=== PATIENT | female | born 1945 | race Caucasian/White ===

== ENCOUNTER 2017-04-18 11:13 | Inpatient (IN) ==
[2017-04-18] MEDS ORDERED: ASPIRIN PO STA (11:49)
[2017-04-18 11:57] LABS: MANUAL DIFF NEEDED? NO
[2017-04-18 12:11] LABS: BASO% 0.7 % (0.0-0.8); EOS# 0.11 X1000 (0.0-0.7); EOS% 2.7 % (0.0-10.0); HEMATOCRIT 40.3 % (37.0-47.0); HEMOGLOBIN 13.4 g/dL (12.0-16.0); LYMPH# 0.95 X1000 (1.2-3.4); LYMPH% 23.1 % (20.5-51.1); MCH 28.9 PG (27-31); MCHC 33.3 g/dL (33-37); MCV 86.9 FL (81-99); MONO# 0.43 X1000 (0.11-0.59); MONO% 10.4 % (1.7-9.3); NEUT% 63.1 % (42.2-75.2); PLT 209 X1000 (130-400); RBC 4.64 XMIL (4.2-5.4)
[2017-04-18 12:13] LABS: INR 1.11; PROTIME 11.7 Seconds (9.2-11.7); PTT 32.7 Seconds (22.0-36.0)
[2017-04-18 12:21] LABS: ALBUMIN 4.2 g/dL (3.5-5.0); CALCIUM 9.3 mg/dL (8.8-10.2); MAGNESIUM 1.9 mg/dL (1.5-2.7); POTASSIUM 3.7 mmol/L (3.5-5.1); TOTAL BILIRUBIN 0.61 mg/dL (0.20-1.00); TOTAL PROTEIN 7.5 g/dL (6.3-8.3)
--- NOTE | 2017-04-18 12:33 | EKG Report ---
Test Performed on : 04/18/2017 11:22:53 AM Test Reason : CP Blood Pressure : / mmHG Vent. Rate : 078 BPM Atrial Rate : 078 BPM P-R Int : 288 ms QRS Dur : 152 ms QT Int : 458 ms P-R-T Axes : 102 -17 116 degrees QTc Int : 522 ms Sinus rhythm. with 1st degree AV block. Left bundle branch block Abnormal ECG No previous ECGs available Unconfirmed Result
--- NOTE | 2017-04-18 12:39 | Diag Imaging Result Doc PS360 ---
EXAM: CHEST-2 VIEWS HISTORY: CP TECHNIQUE: PA and lateral chest COMMENT: There is been sternotomy and aortic valve replacement since the previous examination of 10/25/2016. There is no evidence of acute pulmonary parenchymal disease. The heart size appears somewhat smaller than on the previous study although the previous study was performed in an AP projection. IMPRESSION: No evidence of acute disease. Electronically signed by Scott Zurita 04/18/2017 12:37 PM
[2017-04-18] MEDS ORDERED: NS 1,000 ML IV ONE (13:30)
--- NOTE | 2017-04-18 13:54 | ED EKG INTERP ---
This chart was entered by Odette Gonzalez Scribe, acting as scribe for Niko Wilkerson MD. EKG Interpretation - EKG Time of EKG reading by physician:: 11:22 EKG Read and Signed by:: Niko Wilkerson EKG Interpretation (*Must complete 3 of following elements*): Abnormal Rate: 78 Rhythm: sinus rhythm with 1st degree AV block Umpire: normal QRS: LBB CT Interval: normal ST Wave: normal Prior EKG Comparison: changes noted Attestation - Physician/ GAURAV Attestation Patient care was provided by Advanced Practice Provider:: No The physician spent face to face time with patient:: Yes Advanced Practice Provider documentation review:: Supervising physician onsite and consulted in the evaluation and care of this patient. The physician did have a face to face encounter with the patient. This chart was documented by the indicated scribe, (Odette Gonzalez Scribe) and accurately reflects the services I performed and decisions made by me, Niko Wilkerson MD, as attested by the provider's signature.
--- NOTE | 2017-04-18 13:58 | PROVIDER DOCUMENTATION ---
This chart was entered by Odette Gonzalez Scribe, acting as scribe for Niko Wilkerson MD. HPI-General Adult - General Chief Complaint: Weakness Stated Complaint: HEART ISSUES, BP PROBLEMS Time Seen by Provider: 04/18/17 12:47 Source: patient Allergies/Adverse Reactions: Patient Allergies Allergy/AdvReac Type Severity Reaction Status Date / Time sulfamethoxazole Allergy Unknown Unknown Verified 04/18/17 13:41 [From Bactrim] trimethoprim [From Bactrim] Allergy Unknown Unknown Verified 04/18/17 13:41 lisinopril Allergy ANAPHYLAXIS Verified 04/18/17 13:41 nifedipine Allergy HIVES Verified 04/18/17 13:41 codeine AdvReac Unknown Verified 04/18/17 13:41 morphine AdvReac ITCHING Verified 04/18/17 13:41 Home Medications: Home Medication List Medication Instructions Recorded Confirmed Last Taken Type Duloxetine [Cymbalta] 60 mg PO DAILY 01/10/13 04/18/17 04/18/17 07:00 History Dextroamphetamine/Amphetamine 20 mg PO DAILY 10/24/16 04/18/17 Unknown History [Adderall 20 mg Tablet] Oxycodone HCl/Acetaminophen 1 each PO Q4-6H PRN PRN 10/24/16 04/18/17 04/18/17 10:00 History [Percocet 10-325 mg Tablet] Amiodarone [Cordarone] 200 mg PO BID 03/12/17 04/18/17 04/18/17 07:00 History Apixaban [Eliquis] 2.5 mg PO BID 03/12/17 04/18/17 Unknown History Aspirin EC 81 mg PO DAILY 03/12/17 04/18/17 04/17/17 07:00 History Dapsone [Aczone] 60 gm TP TID PRN 03/12/17 04/18/17 Unknown History Diclofenac 1% Gel [Voltaren 1% Gel] 2 gm TOP DAILY PRN 03/12/17 04/18/17 07:00 History Docusate Sodium [Colace] 100 mg PO DAILY PRN 03/12/17 04/18/17 Unknown History Metoprolol [Lopressor] 25 mg PO BID 03/12/17 04/18/17 04/18/17 07:00 History Multivits,Ca,Minerals/Iron/FA 1 each PO DAILY 03/12/17 04/18/17 04/17/17 07:00 History [Multi For Her Softgel] PRAVAstatin [Pravachol] 20 mg PO QHS 03/12/17 04/18/17 04/17/17 21:00 History - History of Present Illness -Gen Adult Nature of Presenting Problems: Patient is a 72 year old female who presents in the ED with complaints of fatigue and other symptoms. She states she had an aortic valve replacement on December 28, 2016, and states she has had increasing fatigue over the last couple of days. She also states she had a syncopal episode two days ago, but states today she had a near syncopal/dizziness episode as well as nausea/vomiting. She reports she now has a severe headache, and reports she took a Percocet 10mg 2.5hrs prior to arrival in ED. She also reports she was taken off of Adderall a couple of weeks ago, and reports she takes Amiodarone and Metoprolol. She states history of a-fib, hypertension, and CHF as well. Location of Pain/Injury: reports: none Pain Radiation: reports: no radiation Quality of Pain: reports: none Severity: reports: mild, moderate Onset/Duration: reports: gradual, other (x couple of weeks) Timing: reports: still present Context/Activities at Onset: reports: none Modifying Factors: improves with: nothing Associated Symptoms: reports: dizziness, fatigue, malaise, nausea, syncope, vomiting, weakness Similar Symptoms Previously?: No Recently seen or treated by another doctor?: No Review of Systems - Adult - REVIEW OF SYSTEMS - ADULT Constitutional: reports: see HPI, fatique Eyes: reports: no symptoms reported Ears, Nose, Mouth & Throat: reports: no symptoms reported Cardiovascular: reports: no symptoms reported Respiratory: reports: no symptoms reported Gastrointestinal: reports: see HPI, nausea, vomiting Genitourinary: reports: no symptoms reported Musculoskeletal: reports: no symptoms reported Integumentary: reports: no symptoms reported Neurological: reports: see HPI, dizziness/vertigo, headache/migraines, syncope Psychiatric: reports: no symptoms reported Endocrine: reports: no symptoms reported Hematologic/Lymphatic: reports: no symptoms reported Allergic/Immunologic: reports: no symptoms reported All Other Systems: Reviewed and Negative Past History - Adult - PAST MEDICAL HISTORY-ADULT Review of Records: reports: Nursing Assessment Review, Medications Reviewed Major Childhood Illnesses: reports: denies history Cardiovascular: reports: A-Fib, CHF, HTN Respiratory: reports: asthma Gastrointestinal: reports: denies history Obstetrical/Gynecological: reports: denies history Genitourinary: reports: denies history Musculoskeletal: reports: arthritis Neurological: reports: denies history Psychiatric: reports: denies history Endocrine/Immune: reports: denies history Other Conditions: reports: other (H-pylori, DJD, hygronitis) - PRIOR SURGERIES/PROCEDURES Surgical/Procedure History: reports: appendectomy, hysterectomy, orthopedic ( extremity), other (AVR) - IMMUNIZATION STATUS Childhood Immunizations: See Nurse Assessment Flu Vaccine: See Nurse Assessment - FAMILY HISTORY Family History: reviewed, not pertinent - SOCIAL HISTORY Smoking: denies Substance Use: none/never Alcohol Use Frequency: never Living Situation: family Physical Exam-General - PHYSICAL EXAM-ADULT Initial Vital Signs Reviewed: Yes - CONSTITUTIONAL General Appearance: alert, no apparent distress - EYES Eyes: PERRL/EOMI, pink conjunctivae - HEAD, EARS, NOSE, MOUTH & THROAT HENMT: normocephalic/atraumatic, moist mucous membranes - NECK Neck: full range of motion, supple - RESPIRATORY Respiratory: chest non-tender, lungs clear, normal breath sounds, no pleuratic chest pain, no respiratory distress, no accessory muscle use - CARDIOVASCULAR Cardiovascular: regular rate, rhythm, no edema, no gallop, no JVD, no murmur - GASTROINTESTINAL (ABDOMEN) Abdominal Exam: non tender, soft, no organomegaly, no pulsatile mass - LYMPHATIC Lymphatic: no adenopathy - MUSCULOSKELETAL Back Exam: normal inspection, no CVA tenderness, no vertebral tenderness Extremity: normal range of motion, non-tender, normal gait, normal inspection, no pedal edema, no calf tenderness, normal capillary refill, pelvis stable - SKIN Integumentary: normal color, normal turgor, warm/dry - NEUROLOGIC Neurologic: grossly normal, no motor/sensory deficits - PSYCHIATRIC Psych/Mental Status: normal mood/affect, oriented x 3 Progress - PLAN OF CARE/RESULTS Progress/Plan/Lab Results: Vital Signs - 8 hr 04/18/17 11:21 Temperature 97.9 F Pulse Rate 78 Respiratory Rate 16 Blood Pressure 193/89 O2 Sat by Pulse Oximetry 100 Laboratory Results - last 24 hr 0904/18/17 04/18/17 11:29 11:29 11:29 WBC RBC Hgb Hct MCV MCH MCHC RDW Std Deviation Plt Count MPV Immature Gran % (Auto) Neut % (Auto) Lymph % (Auto) [place] % (Auto) Eos % (Auto) Baso % (Auto) Immature Gran # (Auto) Neut # (Auto) Lymph # (Auto) [place] # (Auto) Eos # (Auto) Baso # (Auto) PT INR PTT (Actin FS) D-Dimer < 0.10 Sodium 136 Potassium 3.7 Chloride 97 L Carbon Dioxide 27 Anion Gap 12 BUN 26 H Creatinine 1.7 H Estimated GFR/1.73 m2 29 BUN/Creatinine Ratio 15 Glucose 92 POC Glucose Calculated Osmolality 276 Calcium 9.3 Magnesium 1.9 Total Bilirubin 0.61 AST 42 H ALT 35 Alkaline Phosphatase 81 Creatine Kinase 129 Troponin T < 0.010 Oih-[id number]-Gscscvxdpuc Pept Total Protein 7.5 Albumin 4.2 Globulin 3.3 Albumin/Globulin Ratio 1.3 04/18/17 04/18/17 04/18/17 11:29 11:29 11:29 WBC 4.12 L RBC 4.64 Hgb 13.4 Hct 40.3 MCV 86.9 MCH 28.9 MCHC 33.3 RDW Std Deviation 14.9 H Plt Count 209 MPV 10.0 Immature Gran % (Auto) 0.0 Neut % (Auto) 63.1 Lymph % (Auto) 23.1 [place] % (Auto) 10.4 H Eos % (Auto) 2.7 Baso % (Auto) 0.7 Immature Gran # (Auto) 0.00 Neut # (Auto) 2.60 Lymph # (Auto) 0.95 L [place] # (Auto) 0.43 Eos # (Auto) 0.11 Baso # (Auto) 0.03 PT 11.7 INR 1.11 PTT (Actin FS) 32.7 D-Dimer Sodium Potassium Chloride Carbon Dioxide Anion Gap BUN Creatinine Estimated GFR/1.73 m2 BUN/Creatinine Ratio Glucose POC Glucose Calculated Osmolality Calcium Magnesium Total Bilirubin AST ALT Alkaline Phosphatase Creatine Kinase Troponin T Gbs-Y-Nadhawcuaxk Pept 1219 H Total Protein Albumin Globulin Albumin/Globulin Ratio 04/18/17 11:37 WBC RBC Hgb Hct MCV MCH MCHC RDW Std Deviation Plt Count MPV Immature Gran % (Auto) Neut % (Auto) Lymph % (Auto) [place] % (Auto) Eos % (Auto) Baso % (Auto) Immature Gran # (Auto) Neut # (Auto) Lymph # (Auto) [place] # (Auto) Eos # (Auto) Baso # (Auto) PT INR PTT (Actin FS) D-Dimer Sodium Potassium Chloride Carbon Dioxide Anion Gap BUN Creatinine Estimated GFR/1.73 m2 BUN/Creatinine Ratio Glucose POC Glucose 93 Calculated Osmolality Calcium Magnesium Total Bilirubin AST ALT Alkaline Phosphatase Creatine Kinase Troponin T [id number]-Blajeppkbwv Pept Total Protein Albumin Globulin Albumin/Globulin Ratio Orders Category Date Time Status Cardiac Monitoring DIRECTED Care 04/18/17 11:49 Active Oxygen Therapy- ED Nursing DIRECTED Care 04/18/17 11:49 Active Saline Loc NOW Care 04/18/17 11:49 Active CHEST-2 VIEWS [RAD] Stat Exams 04/18/17 11:49 Completed CBC WITH ELECTRONIC DIFF [HEME] Stat Lab 04/18/17 11:29 Completed CK PROFILE [SP CHEM] Stat Lab 04/18/17 11:29 Completed COMPREHENSIVE METABOLIC PANEL [CHEM] Stat Lab 04/18/17 11:29 Completed D-DIMER [CHEM] Stat Lab 04/18/17 11:29 Completed MAGNESIUM [CHEM] Stat Lab 04/18/17 11:29 Completed PRO B-NATRIURETIC PEPTIDE Stat Lab 04/18/17 11:29 Completed PROTIME WITH INR [COAG] Stat Lab 04/18/17 11:29 Completed PTT [COAG] Stat Lab 04/18/17 11:29 Completed TROPONIN T Stat Lab 04/18/17 11:29 Completed UA NIMS W/REFLEX CULT [URINALYSIS] Stat Lab 04/18/17 13:32 Uncollected 0.9% Sodium Chloride Inj [Ns] 1,000 ml Med 04/18/17 13:30 Active IV 999 mls/hr Aspirin Med 04/18/17 11:49 Discontinued 325 mg PO STAT STA EKG [EKG] Stat Ther 04/18/17 11:49 Draft Result Diagrams: 04/18/17 11:29 04/18/17 11:29 - CONSULTS/PCP/HOSPITALIST Notification #1 *Consult/PCP/Hospitalist*: Dr. Woody/Jermaine Time Discussed: 13:56 Consult Disposition: Will see in ED, Admit Departure - Departure Date of Disposition Decision: 04/18/17 Time of Disposition Decision: 13:42 DIAGNOSIS: Fatigue, Renal insufficiency Disposition: ADMITTED INPATIENT 09 Certified Medical Emergency: Emergent Condition: Stable Referrals and Follow-Ups: Porfirio Gamboa MD [Primary Care Provider] - - Critical Care Note This patient required my direct & personal management of CC.: No Attestation - Physician/ GAURAV Attestation Patient care was provided by Advanced Practice Provider:: No The physician spent face to face time with patient:: Yes Advanced Practice Provider documentation review:: Supervising physician onsite and consulted in the evaluation and care of this patient. The physician did have a face to face encounter with the patient. This chart was documented by the indicated scribe, (Odette Gonzalez Scribe) and accurately reflects the services I performed and decisions made by me, Niko Wilkerson MD, as attested by the provider's signature.
[2017-04-18] MEDS ORDERED: COLACE PO PRN (15:31)
[2017-04-18 16:06] LABS: URINE CULTURE NEEDED? NO; URINE MICRO REVIEW NEEDED? NO; URINE SOURCE CLEAN CATCH
[2017-04-18 16:19] LABS: BILIRUBIN URINE NEGATIVE (NEGATIVE); BLOOD URINE NEGATIVE (NEGATIVE); COLOR YELLOW; GLUCOSE URINE NEGATIVE (NEGATIVE); LEUKOCYTES URINE NEGATIVE (NEGATIVE); NITRITE URINE NEGATIVE (NEGATIVE); PH URINE 5.5; PROTEIN URINE NEGATIVE (NEGATIVE); SP GRAVITY URINE 1.007; TURBIDITY URINE CLEAR (CLEAR); UROBILINOGEN URINE NORMAL (NORMAL)
[2017-04-18 16:21] LABS: UR EPITHELIAL CELLS <10 /HPF (<10); URINE BACTERIA NEGATIVE /HPF; URINE RBC <10 /HPF (<10); URINE WBC <10 /HPF (<10)
[2017-04-18] MEDS: NS 1,000 ML IV SCH ×2 (16:33→21:37)
[2017-04-18 17:19] LABS: UR CREAT RANDOM 50.1 mg/dL (11-20); UR PROT RANDOM 8.8 mg/dL
[2017-04-18] MEDS: PERCOCET-10 PO PRN ×2 (17:40→21:37)
[2017-04-18] MEDS ORDERED: APRESOLINE IV ONE (17:53)
--- NOTE | 2017-04-18 18:01 | Diag Imaging Result Doc PS360 ---
EXAM: CT HEAD W/O CONTRAST INDICATION: confusion, syncope TECHNIQUE: Dose reduction protocol was used. COMPARISON: None. FINDINGS: There is no definite acute infarct given the limited sensitivity of CT versus MRI. There is no discrete intracranial mass, mass effect, or intracranial hemorrhage. The surrounding soft tissues and bony structures are essentially unremarkable. IMPRESSION: No evidence of acute intracranial pathology. Electronically signed by Guillaume Mueller 04/18/2017 5:59 PM
[2017-04-18] MEDS: PRAVACHOL PO SCH (20:57)
[2017-04-18] MEDS: LOPRESSOR PO SCH (20:57)
[2017-04-18] MEDS: ELIQUIS PO SCH (20:58)
[2017-04-18] MEDS: CORDARONE PO SCH (20:58)
--- NOTE | 2017-04-18 21:16 | HISTORY AND PHYSICAL ---
NAIL GALVANIZER: Dr. Bigg Azul. CHIEF COMPLAINT: Dizziness, weakness and syncope. HISTORY OF PRESENT ILLNESS: Ms. Aldana is a 72-year-old female, who has recently undergone a tissue aortic valve replacement at [facility]. That was on January 02. She also has a history of paroxysmal atrial fibrillation, hypertension, degenerative disk disease, osteopenia and hidradenitis suppurativa. She comes in today with dizziness and weakness and some confusion upon awakening this morning. She has also been reporting extreme fatigue and actually had a syncopal episode 2-3 days ago where she said she hit her head, and since that time, she has had kind of an unsteady gait. She has also had some blurry vision, but denies any unilateral weakness. With regards to her aortic valve, she denies any chest pain, no shortness of breath, no lower extremity edema, no palpitations. She does report some occasional nausea and vomiting and constipation. When she got to the ER today, she was noted to have some renal insufficiency. However, after speaking with her, she states that when she was at [facility] and had her aortic valve replaced that she actually coded secondary to volume loss and subsequently suffered acute kidney injury. She denies having to be on dialysis, but she does see a manager work in [place]. So when she got here today, she had laboratories and diagnostics done. The chest x- ray was negative and other than the renal insufficiency, her labs are unremarkable. She does have an elevated proBNP of 1219, but her chest x-ray is clear. Of note, she also stopped her Adderall prior to her cardiothoracic surgery and had not been on it since then. So this certainly may be a mitigating factor in her extreme fatigue. A head CT has been ordered and she is going to be admitted for further treatment and evaluation. PAST MEDICAL HISTORY: 1. Recent aortic valve replacement. 2. Paroxysmal atrial fibrillation on Eliquis. 3. Hypertension. 4. History of uterine cancer, status post hysterectomy. 5. Degenerative disk disease. 6. Osteopenia. 7. Hidradenitis suppurativa. 8. Chronic pain. SURGICAL HISTORY: She has had aortic valve replacement with tissue valve, hysterectomy, bilateral knee arthroplasty, right hand surgery. SOCIAL HISTORY: Patient denies tobacco use. She reports having a history of heavy alcohol use, but only drinks occasionally now. She denies drug use, is at the bedside. FAMILY HISTORY: Noncontributory. REVIEW OF SYSTEMS: Fourteen-point review of systems obtained and found to be negative with the exception of the HPI. ALLERGIES: Sulfamethoxazole, trimethoprim, lisinopril, nifedipine, codeine and morphine. HOME MEDICATIONS: Amiodarone 200 mg p.o. b.i.d., Eliquis 2.5 mg b.i.d., aspirin 81 mg daily, dapsone 60 g TP t.i.d. p.r.n., Adderall 20 mg daily, Voltaren 2 g topical as directed, Colace 100 mg daily, Cymbalta 60 mg daily, Lopressor 25 mg b.i.d., multivitamin 1 daily, oxycodone 1 every 4- 6 hours as needed for pain, Pravachol 20 mg at bedtime. PHYSICAL EXAMINATION: VITAL SIGNS: Blood pressure is 192/81, heart rate is 60, respiratory rate is 18 , O2 saturation 100% on room air. Temperature is 97.9 degrees. GENERAL: This is a well-developed, well-nourished, female lying in hospital bed. No acute distress. NEUROLOGIC: The patient has no focal deficits. She is slightly confused as to the year. HEENT: Head is atraumatic, normocephalic. Her pupils are equal, round, and reactive to light. Her oral mucosa is moist. Trachea is midline. There is no JVD. CHEST: Clear to auscultation bilaterally. CARDIOVASCULAR: Regular rate and rhythm. S1, S2 is noted. Systolic ejection murmur is noted. GI: Soft, nondistended, nontender. Bowel sounds are active. EXTREMITIES: No edema, clubbing or cyanosis. Pulses palpable bilaterally. DIAGNOSTIC DATA: Chest x-ray is negative. EKG shows sinus rhythm, 1st degree AV block. No acute ST or T abnormalities. WBC 4.12, hemoglobin 13.4, hematocrit 40.3, platelet count is 209,000. INR 1.11. D-dimer negative. Sodium 136, potassium 3.7, chloride 97, CO2 27, anion gap 12, BUN 26, creatinine 1.7. Glucose is 92, magnesium 1.9. Total bilirubin 0.61, AST 42 , ALT 35, alkaline phosphatase 81, proBNP 1219. ASSESSMENT/PLAN: 1. Dizziness, weakness and confusion: Unclear of the etiology. We will check a CT of her head. She states she did lose consciousness and hit her head 2 or 3 days ago. We will also check orthostatic vital signs and have Dr. Goss evaluate the patient as she has recently had aortic valve; however, it seems her aortic valve is functioning adequately. We are going to trend enzymes and be cautious with antihypertensives. She is also on oxycodone, metoprolol, Cymbalta which could cause some neurologic issues as far as gait and steadiness. We will also be cautious with those. 2. Renal insufficiency: It would seem the patient has chronic kidney disease as looking back as far as 2012, her creatinine is noted to be 2.1. Her current baseline is unknown however, as she has recently had a profound acute kidney injury secondary to volume loss. We will give her some IV fluids. Check electrolytes in the urine and avoid any nephrotoxic medications. If she has no improvement or we see any worsening, we will consider Nephrology consultation and renal ultrasound. 3. Paroxysmal atrial fibrillation: Continue amiodarone and Eliquis. Her rhythm is sinus at this time. 4. Deep vein thrombosis prophylaxis will be provided with her home Eliquis. Further recommendations to follow. Dictated by NOAH Lorenz for Patricia Woody MD cc: NOAH Lorenz MD I personally performed a face to face evaluation on this patient. The patient presented to the hospital with a chief complaint of dizziness and syncope at home. On exam, the patient was noted to be slightly confused and dizzy. The patient's laboratory and imaging studies were reviewed by me. The patient will be admitted and started on gentle IVF hydration. Will also consult cardiology for further recommendations. ZEESHAN
[2017-04-18] MEDS: ZOFRAN IV PRN (21:37)
[2017-04-19 05:56] LABS: HEMATOCRIT 33.9 % (37.0-47.0); HEMOGLOBIN 11.1 g/dL (12.0-16.0); MCH 28.6 PG (27-31); MCHC 32.7 g/dL (33-37); MCV 87.4 FL (81-99); MPV 10.3 FL (7.4-10.4); RBC 3.88 XMIL (4.2-5.4)
[2017-04-19 06:15] LABS: CALCIUM 8.7 mg/dL (8.8-10.2)
[2017-04-19 06:18] LABS: FREE T4 1.1 ng/dL (0.93-1.70)
[2017-04-19] MEDS: CYMBALTA PO SCH (08:46)
[2017-04-19] MEDS: THERA M PLUS PO SCH (08:46)
[2017-04-19] MEDS: ASPIRIN EC PO SCH (08:47)
[2017-04-19] MEDS: CORDARONE PO SCH (08:47)
[2017-04-19] MEDS: ELIQUIS PO SCH ×2 (08:47→20:57)
[2017-04-19] MEDS: LOPRESSOR PO SCH ×2 (08:47→20:57)
[2017-04-19] MEDS: ZOFRAN IV PRN (09:14)
[2017-04-19] MEDS: SYNTHROID PO SCH (10:19)
[2017-04-19] MEDS: PERCOCET-10 PO PRN ×2 (11:43→20:57)
--- NOTE | 2017-04-19 15:02 | Diag Imaging Result Doc PS360 ---
EXAM: US ABDOMEN-COMPLETE HISTORY: nausea/vomiting TECHNIQUE: COMPARISON: None. FINDINGS: Normal pancreas, aorta, and inferior vena cava. No abnormality to the liver. There are multiple stones within the gallbladder. Gallbladder wall is not thickened. The gallbladder is distended measuring 9.5 cm in length. The common bile duct measures 6 mm. Normal kidneys. No hydronephrosis. Normal spleen. No ascites. IMPRESSION: Distended gallbladder with multiple small stones, but no wall thickening. Electronically signed by Azael Craig 04/19/2017 2:59 PM
--- NOTE | 2017-04-19 15:52 | CONSULTATION ---
DATE OF CONSULTATION: 04/19/2017 INDICATION: Dizziness, weakness, syncope. HISTORY OF PRESENT ILLNESS: Ms. Aldana is a 72-year-old white female with a recent history of a bioprosthetic aortic valve replacement at [facility]. This was done in December. She has a history of paroxysmal atrial fibrillation and hypertension. She comes in with evaluations of dizziness and weakness and generalized malaise over quite some time, several weeks, and possibly even months. She can report no inciting events. These symptoms do not necessarily occur only on standing, as today she said she was being pushed around in wheelchair and was very dizzy and almost became sick and vomited. She has not had any chest pain. No heart racing. She has not had any adjustment in her medications recently that she is aware of. No infectious type symptoms. She reports good oral intake. PAST MEDICAL HISTORY: 1. Significant for severe aortic insufficiency status post bioprosthetic aortic valve replacement. 2. Paroxysmal atrial fibrillation. 3. Hypertension. 4. History of uterine cancer status post hysterectomy. 5. Chronic pain maintained on chronic narcotic therapy. 6. History of empty sella syndrome in which she was evaluated several years ago and is unaware of any of followup after that. SOCIAL HISTORY: No tobacco. Occasional alcohol use presently. FAMILY HISTORY: Significant for hypertension. REVIEW OF SYSTEMS: A 10 system review of systems is negative except for those things mentioned in HPI. PHYSICAL EXAMINATION: Vital Signs: She is afebrile. Her heart rates seem to be predominantly in the 50s. Her most recent blood pressure was 160/62. At 7:30 she had orthostatics performed which were negative. General: She is in no acute distress. HEENT: Oropharynx is moist. Normal dentition. Eye examination is pink conjunctivae. White sclerae. Neck: Examination shows no obvious thyromegaly. She has no obvious thyroid tenderness. Cardiovascular: She sounds to be in a regular rate and rhythm. She has a well-healed midline sternotomy scar. She has no lower extremity edema. She has no carotid bruits. She had a 2/6 systolic murmur that was basically heard throughout the precordium. Chest: Examination was clear bilaterally. She has no increased work of breathing. Abdomen: Soft, nontender, nondistended. She has no obvious organomegaly. Skin: Warm and dry throughout. No obvious rashes. Neurological: She is moving all extremities well. No obvious lateralizing deficits. Psychiatric: She is alert, oriented, pleasant. PERTINENT DATA: Head CT performed demonstrating no evidence of any acute cranial pathology. She had an EKG that demonstrated what appeared to be a sinus rhythm, left bundle branch block. Chest x-ray on 04/18/2017 demonstrated no evidence of any acute cardiovascular disease. Laboratory data shows a white count of 3.6 and hematocrit 33.9. This was a drop from 40 yesterday. Platelet count 219,000. Sodium 138, potassium 4, BUN 20, creatinine 1.6. Yesterday BUN and creatinine were 26 and 1.7. ProBNP is 1219 this is down from 4080 in September. TSH 22.99 with a free T4 of 1.1. Cardiac enzymes negative. Albumin 4.2. Urinalysis was essentially unremarkable. ASSESSMENT: 1. Diffuse symptoms of fatigue, dizziness, and generalized lack of energy with no obvious shortness of breath or chest pain. 2. History of bioprosthetic aortic valve replacement secondary to severe aortic insufficiency. PLAN: I would recommend a general endocrine workup considering her history of empty sella syndrome in the past as well as her thyroid abnormalities. We will check an echocardiogram to evaluate her bioprosthetic aortic valve. I would also consider evaluating her via ENT considering her symptoms of significant dizziness with horizontal motion. I will drop her metoprolol as well as her amiodarone in half and see if she gets improvement in her symptoms with these medication adjustments. I will increase her Apixiban to 5 mg b.i.d. as this is the appropriate dose with her renal function, age, and weight. cc: Bigg Azul MD
[2017-04-19] MEDS: NS 1,000 ML IV SCH (18:31)
[2017-04-19] MEDS: ZOFRAN PO SCH (18:33)
[2017-04-19] MEDS: ANTIVERT PO SCH (20:56)
[2017-04-19] MEDS ORDERED: ZANTAC PO SCH (21:00)
[2017-04-19] MEDS: ZANTAC PO SCH (21:06)
[2017-04-19] MEDS: PRAVACHOL PO SCH (21:06)
[2017-04-20] MEDS: PERCOCET-10 PO PRN ×2 (01:13→17:49)
[2017-04-20] MEDS: ZOFRAN PO SCH ×2 (02:49→13:52)
[2017-04-20] MEDS: NS 1,000 ML IV SCH ×2 (05:21→11:06)
[2017-04-20 05:36] LABS: HEMOGLOBIN 11.1 g/dL (12.0-16.0); MCH 29.5 PG (27-31); MCHC 32.6 g/dL (33-37); MCV 90.4 FL (81-99); MPV 10.5 FL (7.4-10.4); RBC 3.76 XMIL (4.2-5.4)
[2017-04-20 06:00] LABS: CALCIUM 8.6 mg/dL (8.8-10.2); POTASSIUM 4.3 mmol/L (3.5-5.1)
[2017-04-20] MEDS: SYNTHROID PO SCH (06:04)
[2017-04-20] MEDS ORDERED: CORTROSYN IV ONE (07:13)
--- NOTE | 2017-04-20 07:23 | CONSULTATION ---
DATE OF CONSULTATION: 04/19/2017 REASON FOR CONSULTATION: Consult for nausea and vomiting. HISTORY OF PRESENT ILLNESS: This is a 72-year-old, white female who reports an episode of syncope several days ago. She hit her head. Since that time, she has had some blurry vision. She has had extreme fatigue since her aortic valve was replaced in December. She reports occasional nausea and vomiting. She has also had new onset of constipation. She has related that to her new heart medications since her valve replacement. Normally, she would have issues with diarrhea and abdominal cramping but lately, she has been more constipated. She reports occasional reflux and takes Zantac as needed. She states proton pump inhibitors and also Pepcid cause diarrhea. She uses Zantac as needed. She states she is lactose intolerant. 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 She reports having an EGD and a colonoscopy several years ago by him. She also reports having a Lap Band gastric surgery in 2002. She denies any visible blood in the stool or black stools. She reports a history of fatty liver in the past and a history of elevated liver function tests in the past. PAST MEDICAL HISTORY: For aortic valve replacement, paroxysmal atrial fibrillation - on Eliquis, hypertension, history of uterine cancer, degenerative disk disease, osteopenia, chronic pain, hidradenitis suppurativa. PAST SURGICAL HISTORY: She has had Lap Band gastric surgery in 2002. She has had a hysterectomy, bilateral knee arthroplasty, right hand surgery. SOCIAL HISTORY: Denies tobacco use. She does report a history of heavy alcohol use but now only drinks on occasion. She is . REVIEW OF SYSTEMS: Per HPI. ALLERGIES: To sulfa (unknown), Bactrim (unknown), lisinopril (anaphylaxis), nifedipine (hives), codeine (unknown), morphine (itching). HOME MEDICATIONS: Pravachol 20 mg every night, Percocet 10/325 every 4-6 hours as needed, multivitamin daily, Lopressor 25 mg twice daily, Cymbalta 60 mg daily, Colace 100 mg daily as needed, diclofenac gel as needed, Adderall 20 mg daily, dapsone 60 mg 3 times a day as needed, aspirin 81 mg daily, Eliquis 2.5 twice a day, Cordarone 200 mg twice a day. PHYSICAL EXAMINATION: Vital Signs: Temperature 98.7 degrees, pulse 58, respirations 14, blood pressure 160/62. General: Patient is awake and alert, in no acute distress. HEENT: Normocephalic, atraumatic. Pupils equal, round, reactive to light. Sclerae are nonicteric. Cardiovascular: Regular rate. Respiratory: Lung sounds clear bilaterally. Abdomen: Soft, nontender. Positive bowel sounds. Extremities: No lower extremity edema noted. DIAGNOSTIC RESULTS/LABORATORY: Hematology: White blood cell 3.67, hemoglobin 11.1, hematocrit 33.9, MCV 87.4, platelets 219,000. Coagulation: Prothrombin time 11.7, INR 1.11, PTT 32.7. Chemistry: Sodium 138, potassium 4, chloride 101, CO2 28, BUN 20, creatinine 1.6, glucose 89, calcium 8.7. Total bilirubin 0.61, AST 42, ALT 35, alkaline phosphatase 81. TSH 22.9, free T4 of 1.1. Head CT with no evidence of acute intracranial pathology. ASSESSMENT AND PLAN: 1. History of aortic valve replacement. 2. Dizziness, weakness, confusion. CT scan of the head was negative. 3. Syncopal episode. 4. Paroxysmal atrial fibrillation. 5. Nausea and vomiting. She has a history of a gastric Lap Band. 6. Constipation, new onset since her aortic valve replacement, possibly related to heart and blood pressure medications. Nausea can also be iatrogenic. We will continue with intravenous hydration. Symptomatic treatment with Zofran every 12 hours. Get an ultrasound of the abdomen with attention to liver, gallbladder, and pancreas. Start Zantac 150 mg twice a day. We continue to follow over the weekend and will refer to Dr. Song on Saturday. Further plans will be made as needed. I have discussed this case with Dr. Mcdonald. Thank you for this consultation. Dictated by NOAH Flores for Lavelle Mcdonald MD cc: NOAH Jurado MD
--- NOTE | 2017-04-20 07:23 | PROGRESS NOTE ---
DATE: 04/20/2017 SUBJECTIVE: The patient is resting comfortably in bed. She complains of nausea and vomiting shortly after breakfast today. She reports that this has been going on for at least a week. She also complains of dizziness. OBJECTIVE: Vital Signs: Temperature 97.8, blood pressure 173/74, heart rate 67 , respirations 16, O2 saturations 99% on room air. General: This is an elderly female, lying in bed, in no acute distress. Head: Normocephalic, atraumatic. Heart: S1, S2. Normal. Bradycardic. Lungs: Clear to auscultation bilaterally. No crackles. No rales. Abdomen: Positive bowel sounds. Soft, nontender, nondistended. Extremities: No edema. No cyanosis. No calf tenderness. Neurologic: The patient is alert and oriented x3. LABS: White blood cell count 3.6, hemoglobin 11, hematocrit 33, platelets 219. Sodium 138, potassium 4, chloride 101, CO2 of 28, BUN 20, creatinine 1, glucose 89. TSH 22 , free T4 of 1.1. ASSESSMENT AND PLAN: 1. Dizziness with near-syncope. I agree with the green marketer that the patient likely needs an ENT evaluation. I will consult ENT on Saturday. Will start meclizine and monitor the patient's response to this medication. 2. History of empty sella. Will order an MRI of the brain to be done on Saturday to assess the pituitary gland. In the meantime will order a prolactin level, IGF-1 level and a cortisol level with cosyntropin stim test in am. The patient will likely need to be referred to an food assembler commissary kitchen for further workup. 3. Recent aortic valve replacement. Aware. 4. Paroxysmal atrial fibrillation. The patient is currently in normal sinus rhythm and rate control. 5. Nausea with vomiting. Gastroenterology has been consulted for further evaluation. 6. Acute kidney injury. Continue on gentle IV fluid hydration. 7. Hypothyroidism. We will start the patient on Synthroid. cc: Patricia Woody MD MTDD
[2017-04-20] MEDS: ANTIVERT PO SCH ×3 (07:43→20:12)
[2017-04-20] MEDS: ASPIRIN EC PO SCH ×2 (07:45→11:07)
[2017-04-20] MEDS: CORDARONE PO SCH ×2 (07:46→11:07)
[2017-04-20] MEDS: ELIQUIS PO SCH ×3 (07:47→20:14)
[2017-04-20] MEDS: CYMBALTA PO SCH ×2 (07:47→11:07)
[2017-04-20] MEDS: LOPRESSOR PO SCH ×3 (07:48→20:13)
[2017-04-20] MEDS: THERA M PLUS PO SCH ×2 (07:48→11:08)
[2017-04-20] MEDS: ZANTAC PO SCH ×3 (07:50→20:14)
[2017-04-20] MEDS ORDERED: CORTEF PO SCH (09:00)
--- NOTE | 2017-04-20 12:43 | ECHO REPORT ---
ORDER DATE: 04/18/2017 AORTIC ROOM MEASUREMENTS: 1. Aortic root 3.8. 2. Left atrium 3.6. SUMMARY: 1. Limited two dimensional echocardiographic study. 2. Aortic valve has been replaced with bioprosthesis. Peak gradient across the aortic valve is 29 mmHg with a mean gradient of 13 mmHg. There is no evidence of aortic regurgitation. Aortic root is mildly enlarged. Moderate mitral annular calcification is demonstrated. There is also mild thickening of mitral valve leaflets with adequate mitral valve opening. Tricuspid valve is without structural abnormality while pulmonic valve is not well demonstrated. 3. Mild left ventricular enlargement with mild concentric left hypertrophy is demonstrated. Estimated systolic PA pressure by Doppler is approximately 45%. No focal wall motion abnormalities are evident. Left atrium is mildly enlarged. Right atrium and right ventricle are of normal size with preserved right ventricular systolic function. 4. No pericardial effusion. 5. Inferior vena cava not demonstrated. CONCLUSIONS: 1. Aortic valve bioprosthesis appears to be functioning adequately. 2. Moderate mitral annular calcification. 3. Mild left ventricular enlargement with mild concentric left hypertrophy and estimated left ejection fraction 45%. 4. Mild left atrial enlargement. cc: MD Maicol Cat CRNP
[2017-04-20] MEDS: PRAVACHOL PO SCH (20:12)
--- NOTE | 2017-04-20 21:04 | PROGRESS NOTE ---
DATE: 04/20/2017 SUBJECTIVE: Patient is resting comfortably, has not had any nausea or vomiting. She denies any problem with diet. No new complaints. OBJECTIVE: Vitals: Temperature is 98.2 degrees, pulse 66, breathing rate of 18, blood pressure 163/71, she weighs about 188 pounds. Abdomen: Soft, nontender. Bowel sounds are audible. IMPRESSION: Nausea, vomiting. Symptoms multifactorial. Medications most likely the cause for her symptoms. However, ENT issue is also a possibility. She is on meclizine. At this point, no new suggestions. I would continue the same. She has been started on Synthroid, and her medication has been reduced. Amiodarone has been cut down to half. We will be available if needed. cc: Lavelle Mcdonald MD
--- NOTE | 2017-04-20 23:00 | PROGRESS NOTE ---
DATE: 04/20/2017 SUBJECTIVE: The patient is resting comfortably in bed. She states that she feels better today. She states that the dizziness is a little bit better with the addition of meclizine. OBJECTIVE: Vital Signs: Temperature 98.2 degrees, blood pressure 163/71, heart rate 56, respirations 18, O2 saturations 97% on room air. General: This is an elderly female, lying in bed, in no acute distress. Head: Normocephalic, atraumatic. Heart: S1, S2. Normal. Regular rate and rhythm. Lungs: Equal air entry bilaterally. No crackles. No rales. Abdomen: Positive bowel sounds. Soft, nontender, nondistended. Extremities: No edema. No cyanosis. No calf tenderness. Neurologic: The patient is alert and oriented x3. LABORATORY STUDIES: White blood cell count 3.5, hemoglobin 11, hematocrit 34, platelets 185,000. Sodium 139, potassium 4.3, chloride 103, CO2 28, BUN 23, creatinine 1.5. Glucose 90. ASSESSMENT AND PLAN: 1. Dizziness. Slightly improved with meclizine. We will continue to monitor the patient closely. Will refer the patient to ENT as an outpatient. 2. History of empty sella. The patient had a cosyntropin stem test done today, and she had an appropriate response. Will await the ACTH level, prolactin level, and insulin like growth factor level. The patient is also scheduled to undergo an MRI of the brain without contrast on Saturday to assess the pituitary gland. 3. History of a bioprosthetic aortic valve replacement. Stable. 4. Paroxysmal atrial fibrillation. Continue on amiodarone and Eliquis. 5. Hypothyroidism. Continue on Synthroid. 6. We will consult physical therapy. cc: Patricia Woody MD [facility]
[2017-04-21] MEDS: ZOFRAN PO SCH ×2 (03:05→14:10)
[2017-04-21] MEDS: PERCOCET-10 PO PRN (05:50)
[2017-04-21 05:53] LABS: HEMATOCRIT 32.6 % (37.0-47.0); HEMOGLOBIN 10.7 g/dL (12.0-16.0); MCH 29.6 PG (27-31); MCHC 32.8 g/dL (33-37); MCV 90.1 FL (81-99); MPV 10.5 FL (7.4-10.4); RBC 3.62 XMIL (4.2-5.4)
[2017-04-21] MEDS: SYNTHROID PO SCH (06:03)
[2017-04-21 06:16] LABS: CALCIUM 8.3 mg/dL (8.8-10.2); POTASSIUM 4.1 mmol/L (3.5-5.1)
[2017-04-21] MEDS: ANTIVERT PO SCH ×3 (10:37→20:03)
[2017-04-21] MEDS: CORDARONE PO SCH (10:38)
[2017-04-21] MEDS: ASPIRIN EC PO SCH (10:38)
[2017-04-21] MEDS: CYMBALTA PO SCH (10:39)
[2017-04-21] MEDS: ELIQUIS PO SCH ×2 (10:40→20:03)
[2017-04-21] MEDS: LOPRESSOR PO SCH ×2 (10:40→20:03)
[2017-04-21] MEDS: THERA M PLUS PO SCH (10:41)
[2017-04-21] MEDS: ZANTAC PO SCH ×2 (10:41→20:03)
--- NOTE | 2017-04-21 18:51 | PROGRESS NOTE ---
DATE: 04/21/2017 SUBJECTIVE: Ms. Aldana is resting comfortably. She denies any abdominal pain, nausea, or vomiting. She has not had any problem with diet. No new complaints. OBJECTIVE: Vital signs: Temperature 98.6 degrees, pulse 56, breathing 14, blood pressure 155/58. Abdomen: Soft. Bowel sounds are audible. Extremities: No pedal edema noted. LABS: Reviewed. Hemoglobin is 10.7, hematocrit 32.7. Other labs are within normal range. IMPRESSIONS: 1. Nausea and vomiting, improved. 2. Dizziness. Vertigo has improved. PLAN: At this point, no new suggestions. Continue the current treatment. I will be available if needed. Dr. Song will be available tomorrow to lemon picker the case. cc: Lavelle Mcdonald MD
[2017-04-21] MEDS: PRAVACHOL PO SCH (20:03)
[2017-04-22] MEDS: ZOFRAN PO SCH ×2 (02:14→13:58)
[2017-04-22] MEDS: PERCOCET-10 PO PRN (03:35)
--- NOTE | 2017-04-22 03:56 | PROGRESS NOTE ---
DATE: 04/21/2017 SUBJECTIVE: The patient is resting comfortably in bed. She states that she feels a lot better. No acute events noted overnight. OBJECTIVE: Vital Signs: Temperature 98.6 degrees, blood pressure 155/58, heart rate 57, respirations 14, O2 saturations 100% on room air. General: This is an elderly female lying in bed in no acute distress. Heart: S1, S2. Normal. Bradycardic. Lungs: Clear to auscultation bilaterally. No wheezes, no rales. No rhonchi. Abdomen: Positive bowel sounds. Soft, nontender, nondistended. Extremities: No edema. No cyanosis. No calf tenderness. Neuro: The patient is alert and oriented x4. LABS: White blood cell count 5, hemoglobin 10, hematocrit 32, platelets 172,000. Sodium 139, potassium 4.1, chloride 101, CO2 27, BUN 22, creatinine 1.3, glucose 88. ASSESSMENT AND PLAN: 1. Dizziness. This has improved with the addition of meclizine. The patient will need to follow up with ENT as outpatient. 2. History of empty sella. The patient will need to be referred to an night club manager as outpatient for further workup. The patient is on Synthroid for her hypothyroidism. Currently we are waiting the results of the ACTH level and insulin like growth factor levels. The patient's prolactin was noted to be elevated. 3. Hypertension. Continue on Lopressor. 4. Paroxysmal atrial fibrillation. Continue on Eliquis and amiodarone. 5. Chronic kidney disease. Stable. 6. Continue with physical therapy. 7. Disposition. The patient should be able to be discharged home tomorrow. cc: Patricia Woody MD
[2017-04-22] MEDS: SYNTHROID PO SCH (06:41)
[2017-04-22] MEDS: CYMBALTA PO SCH (08:44)
[2017-04-22] MEDS: ZANTAC PO SCH ×2 (08:44→20:02)
[2017-04-22] MEDS: CORDARONE PO SCH (08:44)
[2017-04-22] MEDS: ASPIRIN EC PO SCH (08:44)
[2017-04-22] MEDS: LOPRESSOR PO SCH ×2 (08:45→20:03)
[2017-04-22] MEDS: ANTIVERT PO SCH ×2 (08:45→13:59)
[2017-04-22] MEDS: ELIQUIS PO SCH (08:45)
[2017-04-22] MEDS: THERA M PLUS PO SCH (08:45)
[2017-04-22] MEDS: DULCOLAX PR SCH ×3 (10:12→20:03)
[2017-04-22] MEDS: GOLYTELY PO ONE ×2 (11:52→13:59)
--- NOTE | 2017-04-22 12:22 | PROGRESS NOTE ---
DATE: 04/22/2017 PRIMARY CARE DOCTOR: Dr. Porfirio Gamboa. PRIMARY EXCELLENCE LEADER: Dr. Bigg Azul. SUBJECTIVE: Patient is resting in bed. She complains of constipation. Her last EGD and colonoscopy were done in 2012. At that time, she was found with H. pylori gastritis which was treated. She had constipation throughout the colon at that time and the patient was told to come back for a repeat colonoscopy. Unfortunately, the patient did not follow up for the last 4 years. She was admitted here with nausea and a history of recent syncope a few weeks ago. Her head CT was negative. She had an abdominal ultrasound done on 04/19/2017 which showed evidence of a distended gallbladder and multiple small stones but no wall thickening. She denies any fever, rigors, and chills. Denies any current vomiting or any blood in the vomiting. She denies any blood in the stools. PHYSICAL EXAMINATION: Vital Signs: Temperature of 98.5, pulse rate of 52, respiratory rate 16, blood pressure 139/62, saturating 97% on room air. Her orthostatics were negative. Body weight of 194 pounds and 11.2 ounces. BMI of 28.8 kg. General Appearance: Patient is moderately built, moderately nourished, lying in bed, in no acute distress. HEENT: Pale conjunctivae. No icterus. Neck: Supple. Abdomen: Soft, nontender, nondistended. No guarding or rebound. Extremities: No cyanosis, clubbing, or edema. Neurologic: She is alert, awake, and oriented. LABS: Hemoglobin and hematocrit are 10.7 and 32.6, white count of 5, platelet count of 172,000, her MCV is 90.1. Sodium 139, potassium 4.1, chloride 101, bicarb 27, anion gap 11, BUN of 22, creatinine 1.3, glucose of 88, calcium 8.3. Prolactin level was 28.4 and her ACTH is 13.4 which is normal. Her cortisol level in the morning was 18.6 which is normal range. Her UA was negative. Ultrasound showing gallstones. Chest x-ray is negative. Echocardiogram is showing aortic valve bioprosthesis appears to be functioning adequately. Moderate mitral annular calcification. Mild left ventricular enlargement with mild concentric left hypertrophy and estimated left ejection fraction of 45%. Mild left atrial enlargement. IMPRESSION AND PLAN: 1. Nausea, likely multifactorial but it could be a combination of constipation, hormonal pathology as the patient has a history of empty sella syndrome. Need to evaluate for peptic ulcer disease as the patient is anemic as well. Schedule for EGD and colonoscopy tomorrow. The risks, benefits, indications, and alternatives were explained to the patient. 2. Dizziness. The patient has been on meclizine. She continues to follow with ENT as an outpatient. She is s/p AV replacement-being evaluated by cardiology team. 3. History of empty sella syndrome. The patient is scheduled for MRI today. This is being managed by the primary team. 4. Paroxysmal atrial fibrillation. She is on Eliquis and amiodarone by Dr. Bigg Azul. 5. Chronic kidney disease, stable. 6. Constipation. We will start the patient on soapsuds enema, Dulcolax, and GoLYTELY. 7. Gastrointestinal prophylaxis with proton pump inhibitors. 8. The above plan of care was discussed with the patient and the nurse, and Dr. Gomes. cc: MD Ethan Hanson MD Gregory S. Cheatham, MD Peter Johnson, MD MTDD
--- NOTE | 2017-04-22 17:18 | PROGRESS NOTE ---
DATE: 04/22/2017 SUBJECTIVE: Patient reports feeling fine. She many bowel movements and she started preparation for colonoscopy for tomorrow. Denies any fever or chills. OBJECTIVE: Vital Signs: Temperature 98.4 degrees, heart rate 52, respiratory rate 16, blood pressure 139/66, O2 saturation 97% on room air. General: This is a 72-year-old, female lying in bed, in no acute distress. HEENT: Head is normocephalic, atraumatic. Anicteric sclerae and pale conjunctivae. Mucous membranes moist. Neck: Supple. No JVD noted. No carotid bruits. No lymphadenopathy. No thyromegaly. Cardiovascular: S1, S2 heard. No murmurs, gallops, or rubs. Regular rate and rhythm. Respiratory: Clear bilaterally to auscultation. No work of breathing or using accessory muscles. Abdomen: Soft, nontender to palpation. Bowel sounds present. No organomegaly. Extremities: No clubbing, cyanosis, or edema. Peripheral pulses present in both legs. Neurological: Patient alert oriented x3. Less dizziness noted. LABORATORY DATA: Reviewed. ASSESSMENT/PLAN: 1. Dizziness. The patient reports that this condition is getting better. Plan is to have an ENT evaluation as an outpatient. 2. History of empty sella. Patient was supposed to have an MRI of the brain but because of the colon preparation she was not able to. We are going to try to do that MRI tomorrow. After that, the patient will be referred to community sports coordinator. 3. Hypertension. Blood pressure is well controlled. 4. Paroxysmal atrial fibrillation. The patient is being followed by Dr. Azul from Cardiology and currently she is on Levaquin and amiodarone. 5. Chronic kidney disease. Creatinine is 1.3 today and back to her baseline. 6. Physical deconditioning. Physical therapy is working with this patient. 7. Disposition. After colonoscopy and MRI, if both exams are okay, the patient can be discharged safely to home to self-care. cc: Ethan Weber MD
[2017-04-22] MEDS: PRAVACHOL PO SCH (20:03)
[2017-04-23] MEDS: ANTIVERT PO SCH ×3 (02:42→14:07)
[2017-04-23] MEDS: ZOFRAN PO SCH ×2 (02:43→14:26)
[2017-04-23] MEDS: SYNTHROID PO SCH (06:04)
[2017-04-23] MEDS: ASPIRIN EC PO SCH (08:29)
[2017-04-23] MEDS: ZANTAC PO SCH (08:30)
[2017-04-23] MEDS: CYMBALTA PO SCH (08:30)
[2017-04-23] MEDS: DULCOLAX PR SCH (08:30)
[2017-04-23] MEDS: THERA M PLUS PO SCH (08:30)
[2017-04-23] MEDS: LOPRESSOR PO SCH ×2 (08:30→17:30)
[2017-04-23] MEDS: CORDARONE PO SCH ×2 (08:31→17:30)
--- NOTE | 2017-04-23 09:36 | Diag Imaging Result Doc PS360 ---
EXAM: MRI BRAIN W/O CONTRAST - 04/22/2017 HISTORY: Empty sella TECHNIQUE: Without contrast per request the referring provider. COMPARISON: CT head of 04/18/2017 FINDINGS: There is no evidence of hemorrhage, mass effect, midline shift, or hydrocephalus. There are minimal chronic microvascular ischemic changes. The diffusion weighted images show no areas of restricted diffusion (no evidence of acute infarct). There is "empty sella" which is likely long-standing and of questionable clinical significance. There are apparent degenerative changes noted at the atlantoaxial articulation. IMPRESSION: No visible acute intracranial abnormality. There is "empty sella" noted. Electronically signed by Armando Fraser 04/23/2017 9:34 AM
--- NOTE | 2017-04-23 11:01 | EKG Report ---
Test Performed on : 04/23/2017 10:37:49 AM Test Reason : afib Blood Pressure : / mmHG Vent. Rate : 051 BPM Atrial Rate : 051 BPM P-R Int : 190 ms QRS Dur : 120 ms QT Int : 580 ms P-R-T Axes : 055 -17 018 degrees QTc Int : 534 ms Sinus bradycardia. Left ventricular hypertrophy with QRS widening T wave abnormality, consider anterior ischemia Abnormal ECG When compared with ECG of 18-APR-2017 11:22, MT interval has decreased Vent. rate has decreased BY 27 BPM Left bundle branch block is no longer present Anterior T wave abnormalities are new. Confirmed by Gil Jesus MD ([id number]) on 04/24/2017 8:18:51 PM
[2017-04-23] MEDS ORDERED: DIPRIVAN 1% ONE ×2 (12:13→14:50)
[2017-04-23] MEDS ORDERED: XYLOCAINE-MPF 2% ONE (14:36)
[2017-04-23 16:08] VITALS: BP 162/68
--- NOTE | 2017-04-24 20:20 | OPERATIVE NOTE ---
PROCEDURE DATE: 04/23/2017 PROCEDURE: 1. Colonoscopy. 2. Esophagogastroduodenoscopy. PREOPERATIVE DIAGNOSES: 1. Nausea and vomiting occasionally. 2. Change in bowel pattern. POSTOPERATIVE DIAGNOSES: 1. Normal examination with previous gastric banding. 2. Normal upper gastrointestinal tract and normal post banding appearance. 3. Normal colonoscopy. DESCRIPTION OF PROCEDURE: After informed consent and adequate intravenous sedation, the scope introduced in the esophagus which was normal. I could see the banding position was about midway of the stomach and there was no banding erosion and the band area did not appear to be "tight". There was no gastric retention in the proximal stomach, normal distal stomach, antrum and duodenum. The scope was withdrawn. At this point, digital rectal exam performed. The scope was introduced all the way to the cecum. The entire colon was completely normal. The scope was withdrawn. The patient tolerated the procedure well without any immediate complications. PLAN: Patient's exam is within normal limits. I cannot see anything wrong with her gastric banding. I talked to the hospitalist. We will discharge her with symptomatic treatment. cc: Bhanu Tsang MD
--- NOTE | 2017-04-26 14:25 | DISCHARGE SUMMARY ---
ADMISSION DATE: 04/18/2017 DISCHARGE DATE: 04/23/2017 CONSULTATIONS: 1. Dr. Mcdonald with Gastroenterology. 2. Dr. Bigg Azul with Cardiology. PROCEDURES PERFORMED: 1. Head CT showed no evidence of acute intracranial pathology. 2. Echocardiogram showed an EF of 45% with LVH. 3. Abdominal ultrasound showed distended gallbladder with multiple small stones but no wall thickening. 4. Brain MRI showed no visible acute intracranial abnormality. There is "empty sella" noted. 5. Colonoscopy and EGD were both normal, performed by Dr. Tsang. DISCHARGE DIAGNOSES: 1. Dizziness that is improving. The patient will see an ENT as an outpatient. 2. History of empty sella. The patient is referred to [facility]. 3. Hypertension, controlled. 4. Paroxysmal atrial fibrillation, followed by Cardiology, rate controlled. 5. Chronic kidney disease, stable. 6. Severe deconditioning. The patient has worked with Physical Therapy. 7. Nausea and constipation, status post EGD and colonoscopy that were completely normal. HOSPITAL COURSE: Ms. Aldana is a 72-year-old female who has recently undergone a tissue aortic valve replacement at [facility] on 01/02/2017. She has a history of paroxysmal atrial fibrillation, hypertension, degenerative disk disease, osteopenia and hidradenitis suppurativa. She came in to the ED with dizziness and weakness and some confusion upon awakening. She had also been reporting extreme fatigue and a syncopal episode 2 to 3 days ago where she says she hit her head and since that time, she had kind of an unsteady gait and blurry vision but denied unilateral weakness. She reports occasional nausea, vomiting and constipation. In the ED, she was noted to have some renal insufficiency. She did state that during her stay at [facility] when she was having her valve replaced, she coded and secondary to volume loss, she suffered acute kidney injury but did not have to be on any type of dialysis, but she was seeing a hydraulic repairer in [place]. Laboratory and diagnostics were done in the ED. Chest x-ray was negative. Laboratory data did show renal insufficiency. Other labs were unremarkable. CT showed no evidence of acute intracranial pathology. Echocardiogram showed aortic valve bioprosthesis that appears to be functioning adequately with mild left hypertrophy and EF of 45%. Her abdominal ultrasound showed distended gallbladder with multiple small stones but no wall thickening. Cardiology was consulted for dizziness, weakness and syncope. They recommended a general endocrine workup considering her history of empty sella syndrome in the past as well as her thyroid abnormalities as well as evaluation by an ENT and decrease her metoprolol as well as her amiodarone in half and make adjustments to her blood thinner. She was continued on IV hydration, symptomatic treatment with Zofran for her nausea. Brain MRI showed that there was empty sella noted. She did undergo an EGD and colonoscopy with Dr. Tsang that showed normal examination with previous gastric banding and a normal upper GI tract, normal post banding appearance, normal colonoscopy. She was discharged by Dr. Tsang after her procedure. Dictation done on 04/26/2017. DISCHARGE MEDICATIONS: 1. Amiodarone 200 mg p.o. b.i.d. 2. Eliquis 2.5 mg p.o. b.i.d. 3. Aspirin 81 mg p.o. daily. 4. Aczone 60 g topical t.i.d. p.r.n. 5. Adderall 20 mg p.o. daily. 6. Voltaren 1% gel 2 g topical daily p.r.n. 7. Colace 100 mg p.o. daily p.r.n. 8. Cymbalta 60 mg p.o. daily. 9. Synthroid 50 mcg p.o. daily. 10.Antivert 2.5 mg p.o. at 1400 and 2100. 11.Lopressor 25 mg p.o. b.i.d. 12.Multi For Her soft gel 1 each p.o. daily. 13.Percocet 10/325 one p.o. q.4 to 6 hours p.r.n. 14.Pravachol 20 mg p.o. nightly at bedtime. FOLLOWUP: Ms. Aldana was discharged home by Dr. Tsang to follow up with [facility], Dr. Thomas for an appointment for dizziness, PCP in [address] Porfirio Gamboa, Dr. Rivera, [employer] [employer], in [place] for her sella turca syndrome. Dictated by NOAH Broderick for Ethan Weber MD Addendum: Patient seen and examined by myself. Agree with NOAH note. It reflects my assessment and plan. Patient admitted for conditions mentioned above. For suspicion for GI bleed a colonoscopy and EGD were performed and those returned negative. Also an MRI was order which confirmed empty sella. Will refer patient to [facility] [employer] [facility] for that pathology and despite patient reports dizziness got better patient will be seen by ENT. Patient is being discharged in stable condition. cc: MD Porfirio Osman MD [facility]
== END 2017-04-23 18:43 | disposition home or self-care (01) ==
LOC: ED 11:13 → SUATTDRO 15:25 → 4N 15:25
PROVIDERS: ATTEND Internal Medicine